=== PATIENT | female | born 1955 | race Caucasian/White ===

== ENCOUNTER 2017-01-13 20:25 | Emergency (ER) | payer MEDICAID ==
[~2017-01-13] VITALS: Ht 162.6 cm; Wt 159.1 kg
[~2017-01-13 20:25] MED LIST: ACET650T98 PO; ASPI81TA3 PO; ATOR80TA75 PO; DIVA500T7 PO; DOCU-159 PO; HYDR12.58 PO; INSU100C SQ; LANT3I SC; LIOT50TA2 PO; LORA10TA3 PO; LOSA25TA5 PO; MAGN400O4 PO; METF-480 PO; METO10TA92 PO; SYN2 PO; ZOLP5TAB7 PO
[2017-01-13 20:30] VITALS: Ht 162.6 cm; Wt 159.1 kg
[2017-01-13] MEDS ORDERED: METHYLPREDNISOLONE 125 MG INJ IV STA (20:32)
[2017-01-13] MEDS ORDERED: IPRATROPIUM (NEB) 0.5 MG/2.5 ML AMP INH STA (20:32)
[2017-01-13] MEDS ORDERED: SOD CHLORIDE 0.9% 500 ML IV STA (20:32)
[2017-01-13] MEDS ORDERED: ALBUTEROL 0.5% (NEB) 2.5 MG/0.5 ML AMP INH STA (20:32)
[2017-01-13 21:12] LABS: ADD SCAN DIFF NO
[2017-01-13 21:14] LABS: BASOPHIL # 0.1 10^3/ul (0.0-0.1); BASOPHILS % 0.6 % (0.0-2.0); EOSINOPHILS # 0.2 10^3/ul (0.0-0.5); EOSINOPHILS % 1.7 % (0.0-7.0); HEMATOCRIT 41.7 % (37.0-47.0); HEMOGLOBIN 13.3 g/dl (12.0-16.0); LYMPHOCYTES # 2.6 10^3/ul (0.8-2.9); MEAN CORPUSCULAR HEMOGLOBIN 28.3 pg (29.0-33.0); MEAN CORPUSCULAR HGB CONC 31.9 g/dl (32.0-37.0); MEAN CORPUSCULAR VOLUME 88.7 fl (82.0-101.0); MEAN PLATELET VOLUME 9.9 fl (7.4-10.4); MONOCYTE # 0.8 10^3/ul (0.3-0.9); MONOCYTES % 9.1 % (0.0-11.0); NEUTROPHIL # 5.3 10^3/ul (1.6-7.5); NEUTROPHILS % 58.9 % (39.0-77.0); PLATELET COUNT 237 10^3/UL (140-415); RED CELL DISTRIBUTION WIDTH 14.3 % (11.5-14.5); WHITE BLOOD COUNT 8.9 10^3/ul (4.8-10.8)
--- NOTE | 2017-01-13 21:24 | RADRPT ---
PROCEDURE: XR Chest. CLINICAL INDICATION: Asthma exacerbation TECHNIQUE: AP Portable chest. COMPARISON: 06/06/2015 chest x-ray FINDINGS: Low lung volumes are present. Mild cardiogenic pulmonary venous hypertension is present with inters titial crowding. Mild cardiomegaly and vascular calcifications of the thoracic aorta are present. Chronic right hemidiaphragmatic elevation is present. No pleural effusions or pneumothorax is prese nt. IMPRESSION: 1. Low lung volumes with bilateral interstitial crowding and mild cardiogenic pulmonary venous hype rtension. 2. Mild cardiomegaly and atherosclerotic vascular disease 3. No focal infiltrates masses or effusions RPTAT: HDC .Etta Hope MD, Date Time Electronically viewed and signed by .Etta Hope MD, on 01/13/2017 21:23 .C/
[2017-01-13 21:32] LABS: ANION GAP 16 (8-16); BLOOD UREA NITROGEN 18 mg/dl (7-20); CALCIUM 9.7 mg/dl (8.4-10.2); CARBON DIOXIDE 30 mmol/L (21-31); CHLORIDE 93 mmol/L (97-110); CREATININE 0.77 mg/dl (0.44-1.00); GLUCOSE 174 mg/dl (70-220); POTASSIUM 4.5 mmol/L (3.5-5.1); SODIUM 134 mmol/L (135-144)
[2017-01-13 21:43] LABS: B-TYPE NATRIURETIC PEPTIDE 154 PG/ML (0-125)
[2017-01-13 21:58] LABS: TROPONIN-I < 0.012 ng/ml (0.00-0.12)
[2017-01-13 22:35] VITALS: BP 138/88; PULSE 88; RESP 26; TEMP 100
--- NOTE | 2017-01-13 22:35 | ERA ---
ER Documentation Chief Complaint Date/Time DATE: 01/13/17 TIME: 22:30 Chief Complaint SHORTNESS OF BREATH HPI This is a 61-year-old female who is morbidly obese who has a history of COPD complained of sudden onset of shortness of breath this evening. She called EMS to pick her up and there is taking her [place] however they could not make it there in time because she started to desaturate in the ambulance and the ambulance was a basic life support and not advanced. The patient's sats dropped into the low to mid 80s and she is having increasing difficulty breathing. She did not have any chest pain. She has had a recent cough has been dry for 2 days. ROS All systems reviewed and are negative except as per history of present illness. Medications Home Meds Reported Medications Zolpidem Tartrate* (Zolpidem Tartrate*) 5 Mg Tablet, 5 MG PO HS Y, TAB 06/07/15 Magnesium Hydroxide* (Milk Of Magnesia*) 400 Mg/5 Ml Oral.susp, 30 ML PO DAILY Y for CONSTIPATION, ML 06/07/15 Metoclopramide* (Reglan*) 10 Mg Tablet, 10 MG PO Q8 Y for NAUSEA AND OR VOMITING , TAB 06/07/15 Metformin* (Glucophage*) 850 Mg Tablet, 850 MG PO BID WITH MEALS, TAB 06/07/15 Divalproex Sodium* (Depakote*) 500 Mg Tablet.dr, 500 MG PO Q12, TAB 06/07/15 Insulin Lispro (Humalog) 100 U/Ml Cartridge, 33 UNIT SQ AC MEALS, EA 06/07/15 Docusate Sodium* (Docusate Sodium*) 100 Mg Capsule, 100 MG PO BID, CAP 06/07/15 Insulin Glargine* (Lantus*) 100 Unit/Ml Soln, 60 UNIT SC Q12, EA 06/07/15 Losartan Potassium* (Losartan Potassium*) 25 Mg Tablet, 25 MG PO BID, TAB 06/07/15 Hydrochlorothiazide* (Hydrochlorothiazide*) 12.5 Mg Tablet, 12.5 MG PO DAILY, TAB 06/07/15 Levothyroxine Sodium* (Synthroid*) 200 Mcg Tablet, 200 MCG PO AC BREAKFAST, TAB 06/07/15 Atorvastatin* (Atorvastatin*) 80 Mg Tablet, 80 MG PO HS, TAB 06/07/15 Aspirin* (Aspirin* Chew) 81 Mg Tab.chew, 81 MG PO DAILY, TAB.CHEW 06/07/15 Loratadine* (Loratadine*) 10 Mg Tablet, 10 MG PO DAILY, TAB 06/07/15 Liothyronine Sodium* (Cytomel*) 50 Mcg Tablet, 50 MCG PO DAILY, TAB 06/07/15 Discontinued Reported Medications Acetaminophen* (Acetaminophen* 8 Hour) 650 Mg Tablet.sa, 650 MG PO Q4 Y for MILD PAIN LEVEL 1-3, TAB.SA 06/07/15 Allergies Allergies: Coded Allergies: No Known Allergy (Unverified , 01/13/17) PMhx/Soc History of Surgery: Yes (,Hysterectomy) Anesthesia Reaction: No (unknown) Hx Neurological Disorder: Yes (AMS,Seizure) Hx Respiratory Disorders: Yes (PNA,COPD, chronic resp failure) Hx Cardiac Disorders: Yes (HTN) Hx Psychiatric Problems: No Hx Miscellaneous Medical Probl: Yes (COPD) Hx Alcohol Use: Yes (Former) Hx Substance Use: No Hx Tobacco Use: Yes Smoking Status: Former smoker FmHx Family History: No coronary disease Physical Exam Vitals Vital Signs Date Time Temp Pulse Resp B/P Pulse Ox O2 Delivery O2 Flow Rate FiO2 01/13/17 20:45 Non Rebreather 15.0 01/13/17 20:38 96 22 88 21 01/13/17 20:30 98.3 99 26 157/92 95 Physical Exam Const: Well-developed, well-nourished, obese Head: Atraumatic, normocephalic Eyes: Normal Conjunctiva, PERRLA, EOMI, normal sclera, no nystagmus ENT: Normal External Ears, Nose and Mouth, moist mucus membranes. Neck: Full range of motion. No meningismus, no lymphadenopathy. Resp: Increased work of breathing with bilateral diffuse wheezes Cardio: Tachycardia, no murmurs, S1 S2 present Abd: Soft, non tender x 4, non distended. Normal bowel sounds, no guarding or rebound, no pulsitile abdominal masses or bruits Skin: No petechiae or rashes, no ecchymosis , no maculopapular rash Back: No midline or flank tenderness Ext: No cyanosis, or edema, FROM x 4, normal inspection, neurovascularly intact x 4 Neur: Awake and alert, STR 5/5 x 4, sensation intact x 4, no focal findings, cerebellum intact Psych: Normal Mood and Affect Result Diagram: 01/13/17 2100 01/13/17 2100 Results 24 hrs Laboratory Tests Test 01/13/17 21:00 White Blood Count 8.910^3/ul Red Blood Count 4.7010^6/ul Hemoglobin 13.3g/dl Hematocrit 41.7% Mean Corpuscular Volume 88.7fl Mean Corpuscular Hemoglobin 28.3pg Mean Corpuscular Hemoglobin Concent 31.9g/dl Red Cell Distribution Width 14.3% Platelet Count 80343^3/UL Mean Platelet Volume 9.9fl Neutrophils % 58.9% Lymphocytes % 29.0% Monocytes % 9.1% Eosinophils % 1.7% Basophils % 0.6% Nucleated Red Blood Cells % 0.0/100WBC Neutrophils # 5.310^3/ul Lymphocytes # 2.610^3/ul Monocytes # 0.810^3/ul Eosinophils # 0.210^3/ul Basophils # 0.110^3/ul Nucleated Red Blood Cells # 0.010^3/ul Sodium Level 134mmol/L Potassium Level 4.5mmol/L Chloride Level 93mmol/L Carbon Dioxide Level 30mmol/L Anion Gap 16 Blood Urea Nitrogen 18mg/dl Creatinine 0.77mg/dl Glucose Level 174mg/dl Calcium Level 9.7mg/dl Troponin I < 0.012ng/ml B-Type Natriuretic Peptide 154PG/ML Current Medications Medications (Trade) Dose Ordered Sig/Makayla Route PRN Reason Start Time Stop Time Status Last Admin Dose Admin Sodium Chloride (NS) 500 ml @ 500 mls/hr Q1H STAT IV 01/13/17 20:32 01/13/17 21:31 DC 01/13/17 21:00 Albuterol (Proventil 0.5% (Neb)) 15 mg ONCE STAT INH 01/13/17 20:32 01/13/17 20:36 DC 01/13/17 20:38 Ipratropium Wellman (Atrovent 0.02% (Neb)) 1 mg ONCE STAT INH 01/13/17 20:32 01/13/17 20:36 DC 01/13/17 20:38 Methylprednisolone Sodium Succinate (Solu-Medrol) 125 mg ONCE STAT IV 01/13/17 20:32 01/13/17 20:36 DC 01/13/17 21:00 Procedures/MDM PROCEDURE: XR Chest. CLINICAL INDICATION: Asthma exacerbation TECHNIQUE: AP Portable chest. COMPARISON: 06/06/2015 chest x-ray FINDINGS: Low lung volumes are present. Mild cardiogenic pulmonary venous hypertension is present with interstitial crowding. Mild cardiomegaly and vascular calcifications of the thoracic aorta are present. Chronic right hemidiaphragmatic elevation is present. No pleural effusions or pneumothorax is present. IMPRESSION: 1. Low lung volumes with bilateral interstitial crowding and mild cardiogenic pulmonary venous hypertension. 2. Mild cardiomegaly and atherosclerotic vascular disease 3. No focal infiltrates masses or effusions RPTAT: HDC .Etta Hope MD, MD Date Time Electronically viewed and signed by .Etta Hope MD, MD on 01/13/2017 21: 23 .C/ CC: DONIS ZAVALA DO EKG: Rate/Rhythm: Sinus tachycardia QRS, ST, QT: NORMAL MA, QRS, QT] Impression: Sinus tachycardia Patient received 1 hour breathing treatments of albuterol and Atrovent as well as Solu-Medrol. Reexamination at 20-30 the patient's breathing much easier she states she feels much better. She is on oxygen and satting 100% No evidence of pneumonia Patient had a COPD exacerbation Spoke with her primary care doctor Dr. Pham is going to arrange transfer to [facility] to be admitted there There may be a problem with EMS transfer due to insurance of this the case the patient will stay here Departure Diagnosis: Primary Impression: COPD exacerbation Condition: Stable DONIS ZAVALA DO January 13, 2017 22:35
== END 2017-01-14 00:13 | disposition short-term general hospital (02) ==
LOC: E/R 20:25
DX: J44.1 Chronic obstructive pulmonary disease with (acute) exacerbation (principal); I10 Essential (primary) hypertension; E66.01 Morbid (severe) obesity due to excess calories; Z68.44 Body mass index [BMI] 60.0-69.9, adult; Z79.4 Long term (current) use of insulin; Z79.82 Long term (current) use of aspirin; Z79.84 Long term (current) use of oral hypoglycemic drugs; Z87.891 Personal history of nicotine dependence
CPT/HCPCS: 71010; 80048; 83880; 84484; 85025; 93005; 94644; 96374; J2930; J7040; Z7502; Z7610